=== PATIENT | female | born 1990 | race Caucasian/White ===

== ENCOUNTER 2017-01-31 10:32 | Emergency (ER) | payer BC ==
--- NOTE | 2017-01-31 10:50 | EDM.PDOC ---
ED HPI GENERAL MEDICAL PROBLEM - General Chief Complaint: Genitourinary Problem Stated Complaint: URINARY FREQUENCY Time Seen by Provider: 01/31/17 10:43 Source of Information: Reports: Patient History Limitations: Reports: No Limitations - History of Present Illness INITIAL COMMENTS - FREE TEXT/NARRATIVE: Patient is a 26-year-old female who presents emergency Department this morning for complaint of urinary frequency and burning. Patient states symptoms started yesterday, and worsen today. Has some mild suprapubic discomfort with urination. But no abdominal pain otherwise. Patient states she is 6 months , currently breast feeding, and is sexually active. Patient denies fever, vaginal discharge or irritation, flank pain, hematuria, nausea, vomiting , diarrhea, chest pain, or shortness of breath. Onset: Gradual Onset Date: 01/30/17 Duration: Day(s): Location: Reports: Abdomen Quality: Reports: Burning Severity: Mild Improves with: Reports: None Worsens with: Reports: None Associated Symptoms: Reports: No Other Symptoms - Related Data Allergies Allergy/AdvReac Type Severity Reaction Status Date / Time No Known Drug Allergies Allergy Cannot Verified 01/31/17 11:09 Remember Home Meds: Home Meds Cephalexin [Keflex] 500 mg PO TID #21 cap 01/31/17 [Rx] Vit W-Ca,Fe,FA(<1 mg) [ Vitamins] 1 each PO DAILY 01/31/17 [ History] ED ROS GENERAL - Review of Systems Review Of Systems: ROS reveals no pertinent complaints other than HPI. Constitutional: Reports: No Symptoms HEENT: Reports: No Symptoms Respiratory: Reports: No Symptoms Cardiovascular: Reports: No Symptoms Endocrine: Reports: No Symptoms GI/Abdominal: Reports: Abdominal Pain : Reports: Dysuria, Frequency. Denies: Discharge, Flank Pain, Hematuria Musculoskeletal: Reports: No Symptoms Skin: Reports: No Symptoms Neurological: Reports: No Symptoms Psychiatric: Reports: No Symptoms Hematologic/Lymphatic: Reports: No Symptoms Immunologic: Reports: No Symptoms ED EXAM, RENAL/ - Physical Exam Exam: See Below Exam Limited By: No Limitations General Appearance: Alert, WD/WN, No Apparent Distress Throat/Mouth: Normal Inspection, Normal Oropharynx, No Airway Compromise Head: Atraumatic, Normocephalic Respiratory/Chest: No Respiratory Distress, Lungs Clear, Normal Breath Sounds, No Accessory Muscle Use, Chest Non-Tender Cardiovascular: Regular Rate, Rhythm, No Murmur GI/Abdominal: Normal Bowel Sounds, Soft, Tender (Minimal suprapubic discomfort with palpation.) (Female) Exam: Deferred (Patient declined exam.) Back Exam: Normal Inspection. No: CVA Tenderness (L), CVA Tenderness (R) Extremities: Normal Inspection Neurological: Alert, Oriented, Normal Cognition Psychiatric: Normal Affect, Normal Mood Skin Exam: Warm, Dry, Intact, Normal Color, No Rash Lymphatic: No Adenopathy Course - Orders/Labs/Meds Orders: Active Orders 24 hr Category Date Time Status UA W/MICROSCOPIC [URIN] Stat Lab 01/31/17 10:43 Uncollected - Re-Assessments/Exams Free Text/Narrative Re-Assessment/Exam: 01/31/17 11:11 PATIENT AFEBRILE, NONTOXIC APPEARING, VITAL SIGNS STABLE. PATIENT NOT AT THIS TIME, GIVEN ROCEPHIN 1 G IM FOR COVERAGE. URINE CULTURE SENT. Departure - Departure Time of Disposition: 11:11 Disposition: Home, Self-Care 01 Condition: Good Clinical Impression: UTI, Urinary tract infectious disease - Discharge Information Instructions: Urinary Tract Infection, Adult, [id number] Referrals: Bhavya Díaz MD [Primary Care Provider] - Forms: ED Department Discharge Additional Instructions: FOLLOW-UP WITH DR. LUCIANO IN 5 DAYS FOR RECHECK. - My Orders Last 24 Hours: My Active Orders 01/31/17 10:43 UA W/MICROSCOPIC [URIN] Stat - Assessment/Plan Last 24 Hours: My Active Orders 01/31/17 10:43 UA W/MICROSCOPIC [URIN] Stat Assessment:: Urinary tract infection Plan: FOLLOW-UP WITH DR. LUCIANO IN 5 DAYS FOR RECHECK
[2017-01-31] MEDS ORDERED: cefTRIAXone 1 GM Vial IM ONE (11:09)
== END 2017-01-31 11:25 | disposition home or self-care (01) ==
LOC: KA.ED 10:32
DX: N39.0 Urinary tract infection, site not specified (principal)
CPT/HCPCS: 81001; 81025; 87086; 87088; 96372; 99283; J0696; 87186